=== PATIENT | male | born 1935 | race Caucasian/White ===

== ENCOUNTER 2017-03-01 08:13 | Observation (INO) | payer OTHER ==
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
[2017-03-01 09:19] LABS: BASOPHIL 0.5 % (0-2.0); EOSINOPHIL 0.9 % (0-4.5); MCH 32.2 pg (25.7-33.7); MCHC 35.5 g/dl (32.0-35.9); MEAN CELL VOLUME 90.8 fl (80-96); MEAN PLT VOLUME 8.2 fl (7.5-11.1); NEUTROPHILS 66.4 % (42.8-82.8); PLATELET COUNT 139 K/MM3 (134-434); RDW 13.9 % (11.9-15.9); WHITE BLOOD COUNT 6.7 K/mm3 (4.0-10.0)
[2017-03-01 09:49] LABS: ALBUMIN 3.8 g/dl (3.4-5.0); ALK PHOS 77 U/L (45-117); ANION GAP 7 (8-16); BILIRUBIN,TOTAL 1.2 mg/dL (0.2-1.0); CALCIUM 9.5 mg/dL (8.5-10.1); CO2 26 mmol/L (21-32); CREATININE 1.5 mg/dL (0.7-1.3); GLUCOSE,RANDOM 200 mg/dL (74-106); SGOT/AST 24 U/L (15-37); SGPT/ALT 29 U/L (12-78); TOT PROT 7.2 g/dl (6.4-8.2)
--- NOTE | 2017-03-01 13:51 | HP ---
CHIEF COMPLAINT: left sided hand/foot numbness and tingling x 2 days PCP: Dr. Bright Neurologist: Dr. Baltazar HISTORY OF PRESENT ILLNESS: Patient is a 81 year old male with a significant past medical history of CVA with left sided facial residual tingling/numbless, in the left 3rd, 4th and 5th digits, hypertensin, hyperlipidemia and diabetes mellitus. He presented to the ER today with left sided hand/foot numbness and tingling for the past 2 days. The patient reports having numbness/tingling in his entire left hand as opposed to just the left 3rd, 4th and 5th digits. He also notes having decreased sensation in his left toes. He denies any complaints of pain, denies any recent trauma. He further denies fevers, chills, headache or dizziness. He denies any recent nausea, vomit, diarrhea or constipation. He denies any recent chest pain or shortness of breath. He denies any recent dysuria, frequency, urgency or hematuria. Patient states he follows Dr. Baltazar as an outpatient. ER course was notable for: (1) NA 135 (2) BUN 28, creat 1.5 (3) Gluc 200, Bili 1.2 (4) Head CT with no acute bleed or fracture Recent Travel: none PAST MEDICAL HISTORY: CVA with left sided facial residual tingling/numbless, in the left 3rd, 4th and 5th digits, hypertension, hyperlipidemia and diabetes mellitus PAST SURGICAL HISTORY: Social History: Smoking: none Alcohol: denies Drugs: denies Family History: Allergies No Known Allergies Allergy (Verified 03/01/17 08:23) HOME MEDICATIONS: Home Medications Medication Instructions Recorded Amlodipine Besylate 10 mg PO DAILY 05/07/16 Brimonidine Tartrate/Timolol 5 ml OP DAILY 05/07/16 [Combigan 0.2%-0.5% Eye Drops] Cholecalciferol (Vitamin D3) 2,000 unit PO DAILY 05/07/16 [Vitamin D3] Dutasteride/Tamsulosin HCl 1 each PO DAILY 05/07/16 [Dutasteride-Tamsulosin 0.5-0.4] Enalapril Maleate [Vasotec -] 10 mg PO DAILY 05/07/16 Metformin HCl 500 mg PO DAILY 05/07/16 Metoprolol Succinate [Toprol XL -] 25 mg PO DAILY 05/07/16 Multivit-Min/FA/Lycopen/Lutein 1 each PO DAILY 05/07/16 [Centrum Silver Tablet] Simvastatin [Zocor -] 40 mg PO HS 05/07/16 Zolpidem Tartrate 10 mg PO DAILY 05/07/16 Aspirin/Dipyridamole [Aggrenox -] 1 combo PO BID #0 05/09/16 [place]-3 Acid Ethyl Esters [Lovaza 1 mg PO DAILY 05/09/16 -] Ranitidine [Zantac -] 150 mg PO BID #0 05/09/16 REVIEW OF SYSTEMS CONSTITUTIONAL: Absent: fever, chills, diaphoresis, generalized weakness, malaise, loss of appetite, weight change HEENT: Absent: rhinorrhea, nasal congestion, throat pain, throat swelling, difficulty swallowing, mouth swelling, ear pain, eye pain, visual changes CARDIOVASCULAR: Absent: chest pain, syncope, palpitations, irregular heart rate, lightheadedness , peripheral edema RESPIRATORY: Absent: cough, shortness of breath, dyspnea with exertion, orthopnea, wheezing, stridor, hemoptysis GASTROINTESTINAL: Absent: abdominal pain, abdominal distension, nausea, vomiting, diarrhea, constipation, melena, hematochezia GENITOURINARY: Absent: dysuria, frequency, urgency, hesitancy, hematuria, flank pain, genital pain MUSCULOSKELETAL: Absent: myalgia, arthralgia, joint swelling, back pain, neck pain SKIN: Absent: rash, itching, pallor HEMATOLOGIC/IMMUNOLOGIC: Absent: easy bleeding, easy bruising, lymphadenopathy, frequent infections ENDOCRINE: Absent: unexplained weight gain, unexplained weight loss, heat intolerance, cold intolerance NEUROLOGIC: Absent: headache, focal weakness or paresthesias, dizziness, unsteady gait, seizure, mental status changes, bladder or bowel incontinence PSYCHIATRIC: Absent: anxiety, depression, suicidal or homicidal ideation, hallucinations. PHYSICAL EXAMINATION GENERAL: Awake, alert, and fully oriented, in no acute distress. HEAD: No change in vision. No ear pain or discharge. No sore throat. EYES: Pupils equal, round and reactive to light, extraocular movements intact, sclera anicteric, conjunctiva clear. No lid lag. EARS, NOSE, THROAT: Ears normal, nares patent, oropharynx clear without exudates. Moist mucous membranes. NECK: Normal range of motion, supple without lymphadenopathy, JVD, or masses. LUNGS: Breath sounds equal, clear to auscultation bilaterally. No wheezes, and no crackles. No accessory muscle use. HEART: Regular rate and rhythm, normal S1 and S2 without murmur, rub or gallop. ABDOMEN: Soft, nontender, not distended, normoactive bowel sounds, no guarding, no rebound, no masses. No hepatomegaly or splenomegaly. MUSCULOSKELETAL: Normal range of motion at all joints. No bony deformities or tenderness. No CVA tenderness. UPPER EXTREMITIES: 2+ pulses, warm, well-perfused. No cyanosis. No clubbing. No peripheral edema. LOWER EXTREMITIES: 2+ pulses, warm, well-perfused. No calf tenderness. No peripheral edema. NEUROLOGICAL: L hand fingers and left toes numbness and tingling. No headache, vertigo, loss of consciousness. PSYCHIATRIC: Cooperative. Good eye contact. Appropriate mood and affect. SKIN: Warm, dry, normal turgor, no rashes or lesions noted, normal capillary refill. ASSESSMENT/PLAN: Patient is a 81 year old male with a significant past medical history of CVA with left sided facial residual tingling/numbless, in the left 3rd, 4th and 5th digits, hypertension, hyperlipidemia and diabetes mellitus. He presented to the ER today with left sided hand/foot numbness and tingling for the past 2 days. The patient reports having numbness/tingling in his entire left hand as opposed to just the left 3rd, 4th and 5th digits. He also notes having decreased sensation in his left toes. He denies any complaints of pain, denies any recent trauma. He further denies fevers, chills, headache or dizziness. He denies any recent nausea, vomit, diarrhea or constipation. He denies any recent chest pain or shortness of breath. He denies any recent dysuria, frequency, urgency or hematuria. Neuro: Rule out TIA/CVA - history of prior CVA with left sided residual A/P: Head CT negative, Brain MRI: no acute infarct is seen, chronic right frontoparietal and right posterior temporal cortical infarcts, punctate chronic right basal ganglia infarcts are seen, moderae periventricular and subcortical chronic microvascular ischemic changes are noted On Aggrenox BID Neuro checks Physical therapy Neuro consulted Cardiology: Hypertension -chronic/controlled A/P: On Amlodopine 10mg, Metoprolol 25mg, Vasotec 10mg Cardiology consulted to rule out cardiac cause of recent neuro event hyperlipidemia - chronic A/P: continue home medications Endocrine: Diabetes Mellitus A/P: Monitor BGMs, sliding scale, diabetic diet Renal: ALEM A/P: NS @ 50cc/hr Repeat labs in a.m. F.E.N. Fluids: NS @ 50cc/hr x 1 Electrolytes: monitor Nutrition: diabetic diet Prophylaxis: DVT: on Aggrenox GI: Zantac Disposition: OBS, full code.
[2017-03-01] MEDS ORDERED: SODIUM CHLORIDE 1,000 ML IV SCH (14:00)
[2017-03-01 15:16] VITALS: BMI 28.3
[2017-03-01 20:08] LABS: URINE APPEARANCE CLEAR; URINE BILIRUBIN NEGATIVE (NEGATIVE); URINE BLOOD NEGATIVE (NEGATIVE); URINE COLOR YELLOW; URINE GLUCOSE (UA) 2+ (NEGATIVE); URINE KETONE NEGATIVE (NEGATIVE); URINE LEUK ESTERASE NEGATIVE (NEGATIVE); URINE NITRITE NEGATIVE (NEGATIVE); URINE UROBILINOGEN NEGATIVE mg/dL (0.2-1.0)
[2017-03-01 20:13] LABS: URINE PROTEIN 1+ (NEGATIVE)
[2017-03-01 20:14] LABS: URINE MUCUS FEW; URINE RBC <1 /hpf (0-3); URINE WBC <1 /hpf (3-5)
[2017-03-01] MEDS: INSULIN SLIDING SCALE (NOVOLOG) 1 VIAL SQ SCH (21:42)
[2017-03-01] MEDS: RANITIDINE HCL 150 MG TABLET (FP) PO SCH ×2 (21:53→21:56)
[2017-03-01] MEDS: ASPIRIN/DIPYRIDAMOLE 25 MG/200 MG CAPSULE (FP) PO SCH (21:53)
[2017-03-01] MEDS ORDERED: ATORVASTATIN CA 20 MG TABLET (FP) PO SCH (22:00)
[2017-03-01] MEDS: OMEGA-3 ACID ETHYL ESTERS (FATTY-ACIDS) 1 GM CAPSULE (FP) PO SCH (23:00)
[2017-03-02] MEDS: INSULIN SLIDING SCALE (NOVOLOG) 1 VIAL SQ SCH ×2 (06:29→11:44)
[2017-03-02 07:06] LABS: BASOPHIL 0.6 % (0-2.0); EOSINOPHIL 1.4 % (0-4.5); MCH 32.4 pg (25.7-33.7); MCHC 35.9 g/dl (32.0-35.9); MEAN CELL VOLUME 90.2 fl (80-96); MEAN PLT VOLUME 8.1 fl (7.5-11.1); NEUTROPHILS 52.7 % (42.8-82.8); PLATELET COUNT 108 K/MM3 (134-434); RDW 13.5 % (11.9-15.9); WHITE BLOOD COUNT 4.9 K/mm3 (4.0-10.0)
[2017-03-02 07:39] LABS: ANION GAP 9 (8-16); CALCIUM 9.2 mg/dL (8.5-10.1); CO2 25 mmol/L (21-32); CREATININE 1.2 mg/dL (0.7-1.3); GLUCOSE,RANDOM 133 mg/dL (74-106); MAGNESIUM 1.9 mg/dL (1.8-2.4); THYROID STIMULATING HORMONE 1.56 uIU/ml (0.358-3.74)
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
[2017-03-02] MEDS ORDERED: METOPROLOL SUCCINATE 25 MG TAB.SR.24H (FP) PO SCH (10:00)
[2017-03-02] MEDS ORDERED: DUTASTERIDE 0.5 MG CAP (FP) PO SCH (10:00)
[2017-03-02] MEDS ORDERED: ENALAPRIL MALEATE 10 MG TABLET (FP) PO SCH (10:00)
[2017-03-02] MEDS ORDERED: PATIENT'S OWN MEDICATION (NON-FORMULARY) (Brimonidine Tartrate/Timolol [Combigan 0.2%-0.5% OP SCH (10:00)
[2017-03-02] MEDS ORDERED: OMEGA-3 ACID ETHYL ESTERS (FATTY-ACIDS) 1 GM CAPSULE (FP) PO SCH (10:00)
[2017-03-02] MEDS ORDERED: BRIMONIDINE TARTRATE 0.2% OPHTHALMIC 5 ML BOTTLE OS SCH (10:00)
[2017-03-02] MEDS ORDERED: TAMSULOSIN HCL 0.4 MG CAP.ER.24H (FP) PO SCH (10:00)
[2017-03-02] MEDS ORDERED: CHOLECALCIFEROL (VITAMIN D3) 1,000 UNIT TABLET (FP) PO SCH (10:00)
[2017-03-02] MEDS ORDERED: MULTIVITAMINS THER W-MINERALS COMBO TABLET (FP) PO SCH (10:00)
[2017-03-02] MEDS ORDERED: PATIENT'S OWN MEDICATION (NON-FORMULARY) (Dutasteride/Tamsulosin Hcl [Dutasteride-Tamsulos PO SCH (10:00)
[2017-03-02] MEDS ORDERED: amLODIPine BESYLATE 10 MG TABLET (FP) PO SCH (10:00)
[2017-03-02] MEDS ORDERED: TIMOLOL 0.5% OPHTHALMIC SOL 5 ML BOTTLE OS SCH (10:00)
[2017-03-02] MEDS ORDERED: PT OWN MED DRAWER 7, Y5N ONE (10:15)
--- NOTE | 2017-03-02 10:37 | CON.CARD ---
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 He denies chest pain, shortness of breath or palpitations. He denies paroxysmal nocturnal dyspnea or orthopnea. He denies fever or chills. He denies headache or lightheadedness. Head CT and MRI of brain was unremarkable. He remains of Aggrenox and currently is compliant with his medications. 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 Cardio/Vascular: Yes: HTN, Hyperlipdemia Endocrine: Yes: Diabetes Mellitus - Past Surgical History Past Surgical History: Yes: None - Alcohol/Substance Use Hx Alcohol Use: No - Smoking History Smoking history: Former smoker Have you smoked in the past 12 months: No Aproximately how many cigarettes per day: 0 If you are a former smoker, when did you quit?: 40 YRS AGO Home Medications - Allergies Allergies/Adverse Reactions: Allergies Allergy/AdvReac Type Severity Reaction Status Date / Time No Known Allergies Allergy Verified 03/01/17 08:23 - Home Medications Home Medications: Ambulatory Orders Amlodipine Besylate 10 mg PO DAILY 05/07/16 Brimonidine Tartrate/Timolol [Combigan 0.2%-0.5% Eye Drops] 5 ml OP DAILY Cholecalciferol (Vitamin D3) [Vitamin D3] 2,000 unit PO DAILY 05/07/16 Dutasteride/Tamsulosin HCl [Dutasteride-Tamsulosin 0.5-0.4] 1 each PO DAILY Enalapril Maleate [Vasotec -] 10 mg PO DAILY 05/07/16 Metformin HCl 500 mg PO DAILY 05/07/16 Metoprolol Succinate [Toprol XL -] 25 mg PO DAILY 05/07/16 Multivit-Min/FA/Lycopen/Lutein [Centrum Silver Tablet] 1 each PO DAILY 05/07/16 Simvastatin [Zocor -] 40 mg PO HS 05/07/16 Zolpidem Tartrate 10 mg PO DAILY 05/07/16 Aspirin/Dipyridamole [Aggrenox -] 1 combo PO BID #0 05/09/16 [place]-3 Acid Ethyl Esters [Lovaza -] 1 mg PO BID 05/09/16 Omeprazole 0 mg PO DAILY 03/01/17 Review of Systems - Review of Systems Constitutional: denies: Chills, Fever Cardiovascular: denies: Chest Pain, Palpitations, Shortness of Breath Respiratory: denies: Cough, Hemoptysis, Orthopnea, PND, SOB, SOB on Exertion Gastrointestinal: denies: Abdominal Pain, Constipation, Diarrhea, Melena, Nausea , Rectal Bleeding, Vomiting Neurological: denies: Confusion, Dizziness, Seizure, Syncope Vital Signs: Vital Signs Temperature 97.9 F 03/02/17 06:00 Pulse Rate 66 03/02/17 06:00 Respiratory Rate 20 03/02/17 07:00 Blood Pressure 109/61 03/02/17 06:00 O2 Sat by Pulse Oximetry (%) 97 03/02/17 07:00 Neck: Yes: Supple Respiratory: Yes: CTA Bilaterally Gastrointestinal: Yes: Normal Bowel Sounds, Soft. No: Tenderness Cardiovascular: Yes: Regular Rate and Rhythm JVD: No Carotid Bruit: No PMI: Non-Displaced Heart Sounds: Yes: S1, S2. No: Gallop Edema: No Neurological: Yes: Numbness, Tingling - Other Data Labs, Other Data: CBC, BMP 03/02/17 05:35 03/02/17 05:35 Laboratory Results - last 24 hr 03/02/17 03/02/17 03/02/17 05:35 05:35 05:35 WBC 4.9 RBC 3.95 L Hgb 12.8 Hct 35.6 MCV 90.2 MCH 32.4 MCHC 35.9 RDW 13.5 Plt Count 108 L D MPV 8.1 Neutrophils % 52.7 D Lymphocytes % 34.3 D Monocytes % 11.0 H Eosinophils % 1.4 Basophils % 0.6 Sodium 138 Potassium 3.9 Chloride 104 Carbon Dioxide 25 Anion Gap 9 BUN 21 H D Creatinine 1.2 POC Glucometer Random Glucose 133 H D Hemoglobin A1c % 7.5 H Calcium 9.2 Magnesium 1.9 TSH 1.56 Normal sinus rhythm with no ST-T abnormality Problem List - Problems (1) Paresthesias in left hand Code(s): R20.2 - PARESTHESIA OF SKIN (2) Cerebrovascular accident Code(s): I63.9 - CEREBRAL INFARCTION, UNSPECIFIED (3) HTN (hypertension) Code(s): I10 - ESSENTIAL (PRIMARY) HYPERTENSION Qualifiers: Hypertension type: essential hypertension Qualified Code(s): I10 - Essential (primary) hypertension (4) Hypercholesterolemia Code(s): E78.00 - PURE HYPERCHOLESTEROLEMIA, UNSPECIFIED (5) Diabetes mellitus Code(s): E11.9 - TYPE 2 DIABETES MELLITUS WITHOUT COMPLICATIONS Qualifiers: Diabetes mellitus type: type 2 Diabetes mellitus complication status: without complication 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 History of CVA with numbness of left hand and foot 2. Hypertension/HCVD 3. Hypercholesterolemia 4. Type 2 diabetes mellitus PLAN: 1. Neuro input noted 2. Continue Metoprolol, Amlodipine and Enalapril as tolerated 3. Continue Aggrenox 4. Continue Atorvastatin and [place] 3 fish oil Discharge planning if no further neuro evaluation is planned Follow up in office Larry Cui MD
[2017-03-02 11:02] VITALS: BP 138/85; PULSE 85; TEMP 98
[2017-03-02] MEDS: OMEGA-3 ACID ETHYL ESTERS (FATTY-ACIDS) 1 GM CAPSULE (FP) PO SCH (11:06)
[2017-03-02] MEDS: ASPIRIN/DIPYRIDAMOLE 25 MG/200 MG CAPSULE (FP) PO SCH (11:07)
[2017-03-02] MEDS: RANITIDINE HCL 150 MG TABLET (FP) PO SCH (11:07)
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
--- NOTE | 2017-03-02 13:31 | DS ---
Physical Exam: SUBJECTIVE: Patient seen and examined at the bedside. OBJECTIVE: Cleared by neurology and cardiology for discharge Patient will need outpatient follow up Vital Signs Period Temp Pulse Resp BP Sys/Urban Pulse Ox Last 24 Hr 97.8 F-98.2 F 66-85 14-20 96-138/58-85 97-99 PHYSICAL EXAM GENERAL: Awake, alert, and fully oriented, in no acute distress. HEAD: No change in vision. No ear pain or discharge. No sore throat. EYES: Pupils equal, round and reactive to light, extraocular movements intact, sclera anicteric, conjunctiva clear. No lid lag. EARS, NOSE, THROAT: Ears normal, nares patent, oropharynx clear without exudates. Moist mucous membranes. NECK: Normal range of motion, supple without lymphadenopathy, JVD, or masses. LUNGS: Breath sounds equal, clear to auscultation bilaterally. No wheezes, and no crackles. No accessory muscle use. HEART: Regular rate and rhythm, normal S1 and S2 without murmur, rub or gallop. ABDOMEN: Soft, nontender, not distended, normoactive bowel sounds, no guarding, no rebound, no masses. No hepatomegaly or splenomegaly. MUSCULOSKELETAL: Normal range of motion at all joints. No bony deformities or tenderness. No CVA tenderness. UPPER EXTREMITIES: 2+ pulses, warm, well-perfused. No cyanosis. No clubbing. No peripheral edema. LOWER EXTREMITIES: 2+ pulses, warm, well-perfused. No calf tenderness. No peripheral edema. NEUROLOGICAL: L hand fingers and left toes numbness and tingling. No headache, vertigo, loss of consciousness. PSYCHIATRIC: Cooperative. Good eye contact. Appropriate mood and affect. SKIN: Warm, dry, normal turgor, no rashes or lesions noted, normal capillary refill. LABS Laboratory Results - last 24 hr 03/01/17 03/01/17 03/01/17 17:47 18:50 21:40 WBC RBC Hgb Hct MCV MCH MCHC RDW Plt Count MPV Neutrophils % Lymphocytes % Monocytes % Eosinophils % Basophils % Sodium Potassium Chloride Carbon Dioxide Anion Gap BUN Creatinine POC Glucometer 234 124 Random Glucose Hemoglobin A1c % Calcium Magnesium TSH Urine Color Yellow Urine Appearance Clear Urine pH 5.0 Ur Specific [place] 1.020 Urine Protein 1+ H Urine Glucose (UA) 2+ H Urine Ketones Negative Urine Blood Negative Urine Nitrite Negative Urine Bilirubin Negative Urine Urobilinogen Negative Ur Leukocyte Esterase Negative Urine RBC <1 Urine WBC <1 Urine Mucus Few 03/02/17 03/02/17 03/02/17 05:35 05:35 05:35 WBC 4.9 RBC 3.95 L Hgb 12.8 Hct 35.6 MCV 90.2 MCH 32.4 MCHC 35.9 RDW 13.5 Plt Count 108 L D MPV 8.1 Neutrophils % 52.7 D Lymphocytes % 34.3 D Monocytes % 11.0 H Eosinophils % 1.4 Basophils % 0.6 Sodium 138 Potassium 3.9 Chloride 104 Carbon Dioxide 25 Anion Gap 9 BUN 21 H D Creatinine 1.2 POC Glucometer Random Glucose 133 H D Hemoglobin A1c % 7.5 H Calcium 9.2 Magnesium 1.9 TSH 1.56 Urine Color Urine Appearance Urine pH Ur Specific [place] Urine Protein Urine Glucose (UA) Urine Ketones Urine Blood Urine Nitrite Urine Bilirubin Urine Urobilinogen Ur Leukocyte Esterase Urine RBC Urine WBC Urine Mucus 03/02/17 03/02/17 06:11 11:43 WBC RBC Hgb Hct MCV MCH MCHC RDW Plt Count MPV Neutrophils % Lymphocytes % Monocytes % Eosinophils % Basophils % Sodium Potassium Chloride Carbon Dioxide Anion Gap BUN Creatinine POC Glucometer 132 137 Random Glucose Hemoglobin A1c % Calcium Magnesium TSH Urine Color Urine Appearance Urine pH Ur Specific [place] Urine Protein Urine Glucose (UA) Urine Ketones Urine Blood Urine Nitrite Urine Bilirubin Urine Urobilinogen Ur Leukocyte Esterase Urine RBC Urine WBC Urine Mucus HOSPITAL COURSE: Date of Admission:03/01/17 Date of Discharge: 03/02/17 Patient is a 81 year old male with a significant past medical history of CVA with left sided facial residual tingling/numbness, in the left 3rd, 4th and 5th digits, hypertension, hyperlipidemia and diabetes mellitus. He presented to the ER with c/o left sided hand/foot numbness and tingling for the past 2 days. The patient reports having numbness/tingling in his entire left hand as opposed to just the left 3rd, 4th and 5th digits. He also notes having decreased sensation in his left toes. He denies any complaints of pain, denies any recent trauma. He further denies fevers, chills, headache or dizziness. He denies any recent nausea, vomit, diarrhea or constipation. He denies any recent chest pain or shortness of breath. He denies any recent dysuria, frequency, urgency or hematuria. Neuro: Rule out TIA/CVA - history of prior CVA with left sided residual A/P: Head CT negative, Brain MRI: no acute infarct is seen, chronic right frontoparietal and right posterior temporal cortical infarcts, punctate chronic right basal ganglia infarcts are seen, moderae periventricular and subcortical chronic microvascular ischemic changes are noted On Aggrenox BID, to continue as an outpatient Continue Amlodipine and Enalapril for HTN Follow up with Neurologist within 1 week after discharge Cardiology: Hypertension -chronic/controlled A/P: On Amlodopine 10mg, Metoprolol 25mg, Vasotec 10mg Cardiology cleared for discharge hyperlipidemia - chronic A/P: continue home medications Endocrine: Diabetes Mellitus A/P: Monitor BGMs, sliding scale, diabetic diet hmg a1c 7.5%, outpatient follow up with PCP Continue metformin Renal: ALEM - resolved A/P: Continue to hydrate Repeat BMP as an outpatient Disposition: Cleared by Neurology and Cardiology for discharge. Full code. Minutes to complete discharge: 60 Discharge Summary Reason For Visit: CERERBROVASCULAR ACCIDENT Current Active Problems Left leg paresthesias (Acute) Paresthesias in left hand (Acute) Condition: Stable - Instructions Diet, Activity, Other Instructions: Mr. Daly: Please follow up with Dr. Baltazar (Neurologist) and Dr. Basilia Juarez (Cardiology) for follow up and workup. Please return to the ER if you experience any new or worsening symptoms. Continue all your medications as prescribed. [facility] @ [facility], [place] [phone] Referrals: Clement Bright MD [Primary Care Provider] - Larry Cui MD [Staff Physician] - 1 Week Jeronimo Baltazar MD [Staff Physician] - 1 Week Disposition: HOME - Home Medications Comprehensive Discharge Medication List: Ambulatory Orders Amlodipine Besylate 10 mg PO DAILY 05/07/16 Brimonidine Tartrate/Timolol [Combigan 0.2%-0.5% Eye Drops] 5 ml OP DAILY Cholecalciferol (Vitamin D3) [Vitamin D3] 2,000 unit PO DAILY 05/07/16 Dutasteride/Tamsulosin HCl [Dutasteride-Tamsulosin 0.5-0.4] 1 each PO DAILY Enalapril Maleate [Vasotec -] 10 mg PO DAILY 05/07/16 Metformin HCl 500 mg PO DAILY 05/07/16 Metoprolol Succinate [Toprol XL -] 25 mg PO DAILY 05/07/16 Multivit-Min/FA/Lycopen/Lutein [Centrum Silver Tablet] 1 each PO DAILY 05/07/16 Simvastatin [Zocor -] 40 mg PO HS 05/07/16 Zolpidem Tartrate 10 mg PO DAILY 05/07/16 Aspirin/Dipyridamole [Aggrenox -] 1 combo PO BID #0 05/09/16 [place]-3 Acid Ethyl Esters [Lovaza -] 1 mg PO BID 05/09/16 Omeprazole 0 mg PO DAILY 03/01/17 This patient is new to me today: No Emergency Visit: Yes ED Registration Date: 03/01/17 Care time: The patient presented to the Emergency Department on the above date and was hospitalized for further evaluation of their emergent condition. Critical Care patient: No - Discharge Referral Referred to [facility] No
--- NOTE | 2017-03-02 21:53 | EKG ---
Test Reason : Blood Pressure : / mmHG Vent. Rate : 069 BPM Atrial Rate : 069 BPM P-R Int : 166 ms QRS Dur : 088 ms QT Int : 400 ms P-R-T Axes : 029 007 022 degrees QTc Int : 428 ms NORMAL SINUS RHYTHM NORMAL ECG WHEN COMPARED WITH ECG OF 25-DEC-2013 15:22, NO SIGNIFICANT CHANGE WAS FOUND Confirmed by SHARRI ARIZMENDI MD ([id number]) on 03/02/2017 9:52:34 PM Referred By: Confirmed By:SHARRI ARIZMENDI MD
== END 2017-03-02 15:05 | disposition home or self-care (01) ==
LOC: JER 08:13 → JERBED 11:17 → J4W 15:04
PROVIDERS: ADMIT Internal Medicine; ATTEND Nurse Practitioner Family
PROC: 3E0337Z Introduction of Electrolytic and Water Balance Substance into Peripheral Vein, Percutaneous Approach (ICD-10-PCS; principal; 2017-03-01)
DX: I63.9 Cerebral infarction, unspecified (principal); R20.2 Paresthesia of skin; I10 Essential (primary) hypertension; E78.5 Hyperlipidemia, unspecified; E11.9 Type 2 diabetes mellitus without complications; Z79.84 Long term (current) use of oral hypoglycemic drugs; Z79.82 Long term (current) use of aspirin; Z87.442 Personal history of urinary calculi; Z87.891 Personal history of nicotine dependence; I69.398 Other sequelae of cerebral infarction; N17.9 Acute kidney failure, unspecified
CPT/HCPCS: 36415; 70450-TC; 70551-TC; 80048; 80053; 81003; 81015; 83036; 83735; 84443; 85025; 87086; 93005; 93010; 97116-GP; 97161-GP; 99285-25; G0378

== ENCOUNTER 2019-07-26 14:22 | Inpatient (IN) | payer OTHER ==
--- NOTE | 2019-07-26 15:25 | PDOC ---
History of Present Illness - General Chief Complaint: Injury Stated Complaint: FALL Time Seen by Provider: 07/26/19 15:19 - History of Present Illness Initial Comments: 07/26/19 16:45 84y/o M hx of CVA x 2 with residual left sided weakness, HTN, HLD, DM, presents to the ER after falling on 2 days ago. This is his 4th fall in the last month and a half, per at the bedside. He reports slipping and falling on the bathroom floor, and hitting is head. there was no loss of consciousness after falling, EMS was called to the scene but patient refused to go to the hospital for further evaluation. He presented today to the ED at his PCP's request (Dr. Plummer). reports that after his first fall, he has had increased inability to wal unassisted and has had an increased shuffling in his gait. Pt denies any headaches, nausea, vomiting, after event or at this time. The patient has had increased forgetfulness per his since he started falling. 07/26/19 16:57 07/26/19 19:08 Past History - Past Medical History Allergies/Adverse Reactions: Allergies Allergy/AdvReac Type Severity Reaction Status Date / Time No Known Allergies Allergy Verified 03/01/17 08:23 Home Medications: Ambulatory Orders Amlodipine Besylate 10 mg PO DAILY 05/07/16 Brimonidine Tartrate/Timolol [Combigan 0.2%-0.5% Eye Drops] 1 drop OU BID Cholecalciferol (Vitamin D3) [Vitamin D3] 2,000 unit PO DAILY 05/07/16 Enalapril Maleate [Vasotec -] 10 mg PO DAILY 05/07/16 Metoprolol Succinate [Toprol XL -] 25 mg PO DAILY 05/07/16 Multivit-Min/FA/Lycopen/Lutein [Centrum Silver Tablet] 1 each PO DAILY 05/07/16 Simvastatin [Zocor -] 40 mg PO HS 05/07/16 Aspirin/Dipyridamole [Aggrenox -] 1 combo PO BID #0 05/09/16 [place]-3 Acid Ethyl Esters [Lovaza -] 1 mg PO BID 05/09/16 Bimatoprost [Lumigan] 1 drop OU HS 07/26/19 Brimonidine Tartrate [Alphagan 0.2% -] 1 drop OU BID drops 07/29/19 Potassium Chloride [K-Dur -] 10 meq PO DAILY tablet.er 07/29/19 Anemia: No Asthma: No Cancer: No Cardiac Disorders: Yes (ATRIAL SEPTAL DEFECT) CVA: Yes (2006, 2013 ? TIA) COPD: No CHF: No Dementia: No Diabetes: Yes (type 2) GI Disorders: Yes (GASTRITIS, ESOPHAGITIS, DIVERTICULOSIS) Disorders: Yes (KIDNEY STONES) HTN: Yes Hypercholesterolemia: Yes Liver Disease: No Seizures: No Thyroid Disease: No - Surgical History Abdominal Surgery: No Appendectomy: Yes Cardiac Surgery: No Cholecystectomy: No Lung Surgery: No Neurologic Surgery: No Orthopedic Surgery: No - Psycho Social/Smoking Cessation Hx Smoking Status: No Smoking History: Former smoker Have you smoked in the past 12 months: No Number of Cigarettes Smoked Daily: 0 If you are a former smoker, when did you quit?: 40 YRS AGO Information on smoking cessation initiated: No Hx Alcohol Use: No Drug/Substance Use Hx: No Substance Use Type: None Hx Substance Use Treatment: No *Physical Exam - Vital Signs Last Vital Signs Temp Pulse Resp BP Pulse Ox 97.7 F 70 16 133/98 98 07/26/19 14:51 07/26/19 15:11 07/26/19 15:11 07/26/19 15:11 07/26/19 15:11 - Physical Exam 07/26/19 18:21 GENERAL: Awake, alert, and fully oriented, in no acute distress HEAD: No signs of trauma, normocephalic, atraumatic EYES: PERRLA, EOMI, sclera anicteric, conjunctiva clear. left periorbital ecchymosis (variegated) ENT: Auricles normal inspection, hearing grossly normal, no hemotympanum nares patent, oropharynx clear without exudates. Moist mucosa NECK: Normal ROM, supple, no lymphadenopathy, JVD, or masses LUNGS: No distress, speaks full sentences, clear to auscultation bilaterally HEART: Regular rate and rhythm, normal S1 and S2, no murmurs, rubs or gallops, peripheral pulses normal and equal bilaterally. ABDOMEN: Soft, nontender, normoactive bowel sounds. No guarding, no rebound. No masses EXTREMITIES :No edema. No clubbing or cyanosis of lower extremities NEUROLOGICAL: Cranial nerves II through XII grossly intact. 3/5 strength left upper extremity. head tilted slightly towards the left. Pt able to ambulate with assistance, with shuffling gait. SKIN: Warm, Dry, normal turgor, no rashes or lesions noted 07/26/19 19:10 ED Treatment Course - LABORATORY CBC & Chemistry Diagram: 07/28/19 06:48 07/29/19 07:05 Medical Decision Making - Medical Decision Making 07/26/19 18:19 84y/o M hx of CVA x 2 with residual left sided weakness, HTN, HLD, DM, presents to the ER after falling on 2 days ago. ekg normal sinus rhythm moderate voltage criteria for LVH annot rule out septal infarct Head CT No evidence of acute intracranial pathology Facial CT no evidence of facial bone fracture or acute pathology cervical spine w/o contrast moderately severe degenerative arthirits with no acute fracture or acute pathology 07/26/19 18:39 Dr. Yoo covering for Dr. Plummer, spoke with him on the phone, pt to be admitted to hospital for altered mental status. Labs' hypokalemia 3.2 Creatinine 1.4 07/26/19 18:49 microblog sent to admitting team 07/26/19 18:57 07/26/19 19:08 07/26/19 19:09 Discharge - Discharge Information Problems reviewed: Yes Clinical Impression/Diagnosis: Altered mental status Qualifiers: Altered mental status type: unspecified Qualified Code(s): R41.82 - Altered mental status, unspecified Condition: Stable [facility]position: [facility] - Follow up/Referral - Patient Discharge Instructions - Post Discharge Activity
[2019-07-26 17:23] LABS: EPI CELLS 1.4 /HPF (0-5/HPF); HYALINE CASTS 3 /lpf (0-8); PH,URINE 5.5 (5.0-8.0); URINE APPEARANCE CLEAR; URINE BACTERIA 17.9 /hpf (NEGATIVE); URINE BILIRUBIN NEGATIVE (NEGATIVE); URINE COLOR YELLOW; URINE GLUCOSE (UA) 1+ (NEGATIVE); URINE KETONE NEGATIVE (NEGATIVE); URINE LEUK ESTERASE NEGATIVE (NEGATIVE); URINE NITRITE NEGATIVE (NEGATIVE); URINE PROTEIN 2+ (NEGATIVE); URINE RBC 2 /hpf (0-4); URINE UROBILINOGEN 0.2 mg/dL (0.2-1.0); URINE WBC 1 /hpf (0-5)
[2019-07-26 17:24] LABS: BASO % 0.7 % (0-2.0); EOS % 0.7 % (0-4.5); HEMATOCRIT 41.9 % (35.4-49); HEMOGLOBIN 14.5 GM/dL (11.7-16.9); LYMPH % 17.2 % (8-40); MCH 30.4 pg (25.7-33.7); MCHC 34.6 g/dl (32.0-35.9); MEAN CELL VOLUME 87.9 fl (80-96); MEAN PLT VOLUME 8.5 fl (7.5-11.1); MONO % 9.9 % (3.8-10.2); NEUT % 71.5 % (42.8-82.8); PLATELET COUNT 154 K/MM3 (134-434); RBC 4.77 M/mm3 (4.00-5.60); RDW 14.9 % (11.9-15.9)
[2019-07-26 17:36] LABS: INR 0.94 (0.83-1.09); PROTHROMBIN TIME (PATIENT) 11.1 SEC (9.7-13.0)
[2019-07-26 17:38] LABS: ACTIVATED PTT 33.7 SECONDS (25.2-36.5)
[2019-07-26 18:22] LABS: ALBUMIN 3.9 g/dl (3.4-5.0); BILIRUBIN,TOTAL 1.2 mg/dL (0.2-1); BLOOD UREA NITROGEN 19.6 mg/dL (7-18); CALCIUM 9.6 mg/dL (8.5-10.1); CREATININE 1.4 mg/dL (0.55-1.3); POTASSIUM 3.2 mmol/L (3.5-5.1); TOT PROT 7.4 g/dl (6.4-8.2)
--- NOTE | 2019-07-26 19:27 | PDOC ---
*Physical Exam - Vital Signs Last Vital Signs Temp Pulse Resp BP Pulse Ox 97.7 F 70 16 133/98 98 07/26/19 14:51 07/26/19 15:11 07/26/19 15:11 07/26/19 15:11 07/26/19 16:01 ED Treatment Course - LABORATORY CBC & Chemistry Diagram: 07/26/19 16:41 07/26/19 16:41 - ADDITIONAL ORDERS Additional order review: Laboratory Results 07/26/19 07/26/19 07/26/19 16:41 16:41 16:41 PT with INR 11.10 INR 0.94 PTT (Actin FS) 33.7 Sodium 139 Potassium 3.2 L Chloride 103 Carbon Dioxide 27 Anion Gap 9 BUN 19.6 H Creatinine 1.4 H Est GFR (CKD-EPI)AfAm 53.09 Est GFR (CKD-EPI)NonAf 45.81 Random Glucose 128 H Calcium 9.6 Total Bilirubin 1.2 H AST 24 ALT 23 Alkaline Phosphatase 83 Total Protein 7.4 Albumin 3.9 Urine Color Yellow Urine Appearance Clear Urine pH 5.5 Ur Specific [place] 1.023 Urine Protein 2+ H Urine Glucose (UA) 1+ H Urine Ketones Negative Urine Blood Negative Urine Nitrite Negative Urine Bilirubin Negative Urine Urobilinogen 0.2 Ur Leukocyte Esterase Negative Urine WBC (Auto) 1 Urine RBC (Auto) 2 Urine Casts (Auto) 3 U Epithel Cells (Auto) 1.4 Urine Bacteria (Auto) 17.9 07/26/19 16:41 RBC 4.77 MCV 87.9 MCHC 34.6 RDW 14.9 D MPV 8.5 Neutrophils % 71.5 D Lymphocytes % 17.2 D Monocytes % 9.9 Eosinophils % 0.7 Basophils % 0.7 Medical Decision Making - Medical Decision Making 07/26/19 19:00 Pt received on sign out from Dr. Luisana Garza. 07/26/19 19:27 D/w HAND II [employer] C[employer] Carleen Wells who accepts the patient for admission. Discharge - Discharge Information Problems reviewed: Yes Clinical Impression/Diagnosis: Altered mental status Condition: Stable - Admission Yes - Follow up/Referral - Patient Discharge Instructions - Post Discharge Activity
--- NOTE | 2019-07-26 20:57 | HP ---
Admitting History and Physical - Primary Care Physician PCP: Clement Bright - Admission Chief Complaint: frequent falls, change in mental status History of Present Illness: This is a 84 y/o man with a PMHx of CVA (left residual weakness), HTN, HLD, DM, Gastritis, Renal Calculi. Who presents to the ED with his s/p fall x 2 days ago. per the , the patient has had 4 falls within the past month. She also reports a change in his mental status. History Source: Family Member Limitations to Obtaining History: Clinical Condition - Past Medical History PROJECT LEAD: Yes: CVA Cardiovascular: Yes: HTN, Hyperlipdemia Endocrine: Yes: Diabetes Mellitus - Past Surgical History Past Surgical History: Yes: None - Smoking History Smoking history: Former smoker Have you smoked in the past 12 months: No Aproximately how many cigarettes per day: 0 If you are a former smoker, when did you quit?: 40 YRS AGO - Alcohol/Substance Use Hx Alcohol Use: No History of Substance Use: reports: None - Social History Usual Living Arrangement: Yes: With Spouse ADL: Family Assistance History of Recent Travel: No Home Medications - Allergies Allergies/Adverse Reactions: Allergies Allergy/AdvReac Type Severity Reaction Status Date / Time No Known Allergies Allergy Verified 03/01/17 08:23 - Home Medications Home Medications: Ambulatory Orders Amlodipine Besylate 10 mg PO DAILY 05/07/16 Brimonidine Tartrate/Timolol [Combigan 0.2%-0.5% Eye Drops] 1 drop OU BID Cholecalciferol (Vitamin D3) [Vitamin D3] 2,000 unit PO DAILY 05/07/16 Enalapril Maleate [Vasotec -] 10 mg PO DAILY 05/07/16 Metoprolol Succinate [Toprol XL -] 25 mg PO DAILY 05/07/16 Multivit-Min/FA/Lycopen/Lutein [Centrum Silver Tablet] 1 each PO DAILY 05/07/16 Simvastatin [Zocor -] 40 mg PO HS 05/07/16 metFORMIN HCL [Metformin HCl] 500 mg PO DAILY 05/07/16 Aspirin/Dipyridamole [Aggrenox -] 1 combo PO BID #0 05/09/16 [place]-3 Acid Ethyl Esters [Lovaza -] 1 mg PO BID 05/09/16 Bimatoprost [Lumigan] 1 drop OU HS 07/26/19 Family Medical History Family History: Unable to Obtain Review of Systems - Review of Systems Constitutional: reports: Weakness Eyes: reports: No Symptoms HENT: reports: No Symptoms Neck: reports: No Symptoms Cardiovascular: reports: No Symptoms Respiratory: reports: No Symptoms Gastrointestinal: reports: No Symptoms Genitourinary: reports: No Symptoms Breasts: reports: No Symptoms Reported Musculoskeletal: reports: Muscle Weakness Integumentary: reports: Bruising Neurological: reports: Confusion, Unsteady Gait Endocrine: reports: No Symptoms Hematology/Lymphatic: reports: No Symptoms Psychiatric: reports: No Symptoms Pain Intensity: 2 Physical Examination Vital Signs: Vital Signs Temperature 98.0 F 07/26/19 19:40 Pulse Rate 81 07/26/19 19:40 Respiratory Rate 17 07/26/19 19:40 Blood Pressure 139/70 07/26/19 19:40 O2 Sat by Pulse Oximetry (%) 97 07/26/19 19:40 Constitutional: Yes: Well Nourished, No Distress, Calm Eyes: Yes: Conjunctiva Clear, EOM Intact, PERRL HENT: Yes: WNL, Atraumatic, Normocephalic, Other (left orbit ecchymosis) Neck: Yes: WNL, Supple, Trachea Midline Cardiovascular: Yes: Regular Rate and Rhythm, S1, S2 Respiratory: Yes: WNL, Regular, CTA Bilaterally Gastrointestinal: Yes: WNL, Normal Bowel Sounds, Soft, Abdomen, Obese ...Rectal Exam: Yes: Deferred Renal/: Yes: WNL Breast(s): Yes: WNL Musculoskeletal: Yes: Back Pain Extremities: Yes: WNL Edema: No Peripheral Pulses WNL: Yes Integumentary: Yes: Bruising, Erythema Neurological: Yes: Alert, Confusion, Dysarthria, Pre-Existing Deficit ...Motor Strength: LUE (5/5), LLE (5/5), RUE (3/5), RLE (3/5) Psychiatric: Yes: Alert Labs: CBC, BMP 07/26/19 16:41 07/26/19 16:41 Imaging - Results X-ray: Report Reviewed, Image Reviewed Cat Scan: Report Reviewed, Image Reviewed EKG: Image Reviewed Problem List - Problems (1) Acute metabolic encephalopathy Code(s): G93.41 - METABOLIC ENCEPHALOPATHY (2) Frequent falls Code(s): R29.6 - REPEATED FALLS (3) Cerebrovascular accident Code(s): I63.9 - CEREBRAL INFARCTION, UNSPECIFIED (4) ALEM (acute kidney injury) Code(s): N17.9 - ACUTE KIDNEY FAILURE, UNSPECIFIED (5) Diabetes mellitus Code(s): E11.9 - TYPE 2 DIABETES MELLITUS WITHOUT COMPLICATIONS Qualifiers: Diabetes mellitus type: type 2 Diabetes mellitus fdc insulin use: without fdc use Diabetes mellitus complication status: without complication Qualified Code(s): E11.9 - Type 2 diabetes mellitus without complications (6) HTN (hypertension) Code(s): I10 - ESSENTIAL (PRIMARY) HYPERTENSION Qualifiers: Hypertension type: essential hypertension Qualified Code(s): I10 - Essential (primary) hypertension (7) Hypercholesterolemia Code(s): E78.00 - PURE HYPERCHOLESTEROLEMIA, UNSPECIFIED Assessment/Plan This is a 84 y/o man with a PMHx of CVA (left residual weakness), HTN, HLD, DM, Gastritis, Renal Calculi. Admitted to M/S for Acute Metabolic Encephalopathy, Frequent Falls, Unsteady Gait for further evaluation of their emergent condition. Plan: Admit Appreciate Neurology Consult Head CT- no ICH C-Spine CT- mod degenerative arthritis, neg fx Facial CT- neg fx EKG- NSR, LVH, cannot r/o Septal Infarct PT eval Neurochecks Fall Precautions Orthostatics Consider STR vs SNF Appreciate Nephrology consult Continue home meds, except Metformin 2/2 lactic acidosis Pain Management- Tylenol prn FEN PO fluids as tolerated Replete lytes prn Low Na, Diabetic Diet DVT ppx OOB SCDs Hold AC 2/2 frequent falls Dispo: Requires Inpatient Care Visit type - Emergency Visit Emergency Visit: Yes ED Registration Date: 07/26/19 Care time: The patient presented to the Emergency Department on the above date and was hospitalized for further evaluation of their emergent condition. - New Patient This patient is new to me today: Yes Date on this admission: 07/26/19 - Critical Care Critical Care patient: No
[2019-07-26 22:12] VITALS: BMI 28.0
--- NOTE | 2019-07-27 08:10 | PN ---
Progress Note, Physician History of Present Illness: 84 y/o man with a PMHx of CVA (left residual weakness), HTN, HLD, DM, Gastritis , Renal Calculi. Who presents to the ED with his s/p fall x 2 days ago. per the , the patient has had 4 falls within the past month. She also reports a change in his mental status. - Current Medication List Current Medications: Active Medications Amlodipine Besylate (Norvasc -) 10 mg PO DAILY [facility] Dipyridamole/Aspirin (Aggrenox -) 1 combo PO BID [facility] Enalapril Maleate (Vasotec -) 10 mg PO DAILY [facility] Metoprolol Succinate (Toprol Xl -) 25 mg PO DAILY [facility] Non-Formulary Medication (Cholecalciferol (Vitamin D3) [Vitamin D3]) 2,000 unit PO DAILY [facility] Non-Formulary Medication (Multivit-Min/Fa/Lycopen/Lutein [Centrum Silver Tablet] ) 1 each PO DAILY [facility] Non-Formulary Medication (Simvastatin) 40 mg PO HS [facility] Non-Formulary Medication (Bimatoprost [Lumigan]) 1 drop OP DAILY [facility] Non-Formulary Medication (Brimonidine Tartrate/Timolol [Combigan 0.2%-0.5% Eye Drops]) 5 ml OP DAILY [facility] Bioqa-0-[id number] Ethyl Esters (Lovaza -) 0.001 gm PO BID [facility] - Objective Vital Signs: Vital Signs Temperature 97.6 F 07/27/19 06:29 Pulse Rate 69 07/27/19 06:29 Respiratory Rate 20 07/27/19 06:29 Blood Pressure 122/83 07/27/19 06:29 O2 Sat by Pulse Oximetry (%) 98 07/26/19 22:18 Cardiovascular: Yes: S1, S2 Respiratory: Yes: Regular, CTA Bilaterally Gastrointestinal: Yes: Normal Bowel Sounds, Soft Neurological: Yes: Alert, Confusion Labs: CBC, BMP 07/26/19 16:41 07/26/19 16:41 INR, PTT INR 0.94 (0.83-1.09) 07/26/19 16:41 Problem List - Problems (1) Altered mental status Assessment/Plan: MAYBE VOLUME DEPLETION CT HEAD NAD NO FOCAL FINDINGS NEURO FOLLOW LABS PT Code(s): R41.82 - ALTERED MENTAL STATUS, UNSPECIFIED (2) Diabetes mellitus Assessment/Plan: BGM HBA1C Code(s): E11.9 - TYPE 2 DIABETES MELLITUS WITHOUT COMPLICATIONS Qualifiers: Diabetes mellitus type: type 2 Diabetes mellitus long-term insulin use: without 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
[2019-07-27 09:24] LABS: BASO % 0.7 % (0-2.0); EOS % 1.4 % (0-4.5); HEMATOCRIT 38.1 % (35.4-49); HEMOGLOBIN 13.5 GM/dL (11.7-16.9); LYMPH % 16.5 % (8-40); MCH 30.9 pg (25.7-33.7); MCHC 35.5 g/dl (32.0-35.9); MEAN CELL VOLUME 87.2 fl (80-96); MEAN PLT VOLUME 8.5 fl (7.5-11.1); MONO % 11.3 % (3.8-10.2); NEUT % 70.1 % (42.8-82.8); PLATELET COUNT 127 K/MM3 (134-434); RBC 4.37 M/mm3 (4.00-5.60); RDW 14.4 % (11.9-15.9); WHITE BLOOD COUNT 5.2 K/mm3 (4.0-10.0)
[2019-07-27] MEDS ORDERED: PATIENT'S OWN MEDICATION (NON-FORMULARY) (Brimonidine Tartrate/Timolol [Combigan 0.2%-0.5% OP SCH (10:00)
[2019-07-27] MEDS ORDERED: OMEGA-3 ACID ETHYL ESTERS (FATTY-ACIDS) 1 GM CAPSULE (FP) PO SCH (10:00)
[2019-07-27] MEDS ORDERED: ASPIRIN/DIPYRIDAMOLE 25 MG/200 MG CAPSULE PO SCH (10:00)
[2019-07-27 10:10] LABS: BLOOD UREA NITROGEN 18.6 mg/dL (7-18); CREATININE 1.2 mg/dL (0.55-1.3); MAGNESIUM 1.9 mg/dL (1.8-2.4); PHOSPHOROUS 3.1 mg/dL (2.5-4.9)
[2019-07-27] MEDS: metoPROLOL SUCCINATE 25 MG TAB.SR.24H (FP) PO SCH (10:18)
[2019-07-27] MEDS: ENALAPRIL MALEATE 10 MG TABLET (FP) PO SCH (10:18)
[2019-07-27] MEDS: MULTIVITAMINS THER W-MINERALS COMBO TABLET (FP) PO SCH (10:19)
[2019-07-27] MEDS: amLODIPine BESYLATE 10 MG TABLET (FP) PO SCH (10:19)
[2019-07-27] MEDS: CHOLECALCIFEROL (VIT D3) 1,000 UNIT (25 MCG) TABLET PO SCH (10:19)
[2019-07-27] MEDS ORDERED: POTASSIUM CHLORIDE TABS 10 MEQ TABLET.ER (FP) PO ONE (11:30)
--- NOTE | 2019-07-27 11:35 | EKG ---
Test Reason : Blood Pressure : / mmHG Vent. Rate : 069 BPM Atrial Rate : 069 BPM P-R Int : 168 ms QRS Dur : 092 ms QT Int : 434 ms P-R-T Axes : 028 -16 005 degrees QTc Int : 465 ms NORMAL SINUS RHYTHM MINIMAL VOLTAGE CRITERIA FOR LVH, MAY BE NORMAL VARIANT BORDERLINE ECG WHEN COMPARED WITH ECG OF 26-JUL-2019 15:14, MINIMAL CRITERIA FOR SEPTAL INFARCT ARE NO LONGER PRESENT Confirmed by Christian Sanchez MD ([id number]) on 07/27/2019 11:35:28 AM Referred By: LORRAINE SMITH DR Confirmed By:Christian Sanchez MD
--- NOTE | 2019-07-27 11:39 | EKG ---
Test Reason : Blood Pressure : / mmHG Vent. Rate : 070 BPM Atrial Rate : 070 BPM P-R Int : 158 ms QRS Dur : 086 ms QT Int : 394 ms P-R-T Axes : 039 -18 001 degrees QTc Int : 425 ms NORMAL SINUS RHYTHM MODERATE VOLTAGE CRITERIA FOR LVH, MAY BE NORMAL VARIANT CANNOT RULE OUT SEPTAL INFARCT , AGE UNDETERMINED ABNORMAL ECG WHEN COMPARED WITH ECG OF 01-MAR-2017 13:17, MINIMAL CRITERIA FOR SEPTAL INFARCT ARE NOW PRESENT Confirmed by Christian Sanchez MD ([id number]) on 07/27/2019 11:38:55 AM Referred By: Confirmed By:Christian Sanchez MD
[2019-07-27] MEDS ORDERED: TIMOLOL 0.5% OPHTHALMIC SOL 5 ML BOTTLE OU SCH (12:00)
[2019-07-27] MEDS ORDERED: BRIMONIDINE TARTRATE 0.2% OPHTHALMIC 5 ML BOTTLE OU SCH (12:00)
[2019-07-27] MEDS ORDERED: PT OWN MED DRAWER 7, Y5N ONE ×2 (13:00→20:32)
--- NOTE | 2019-07-27 13:26 | CONSULT ---
Consult Consult Specialty:: PM&R Dr Galeas for Dr Villalobos - History of Present Illness Chief Complaint: falls History of Present Illness: This is an 84 year old man with a medical history of CVA with L HP, HTN, HLD, gastritis, renal calculi, DMT2, who presented to the ED 07/26/2019 after 5 falls since 05/2019. He reports the falls were mechanical (moving too quickly, left his cane, tripped); reports that since the 1st one in 05/2019, he has been more unsteady and more confused. He was admitted for further work-up of acute metabolic encephalopathy, unsteady gait and falls. CT head 07/26/2019 showed no acute pathology, with moderately severe small vessel ischemia. CT facial bones was limited, without evidence of facial bone fractures or acute pathology. CT cervical spine 07/26/2019 showed moderately severe DJD. Renal function was elevated. Neurology consult is pending. He has not been seen by PT. Physiatry is being consulted for further recommendations. 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 Cardio/Vascular: Yes: HTN, Hyperlipdemia Endocrine: Yes: Diabetes Mellitus - Past Surgical History Past Surgical History: Yes: None - Alcohol/Substance Use Hx Alcohol Use: No - Smoking History Smoking history: Former smoker Have you smoked in the past 12 months: No Aproximately how many cigarettes per day: 0 If you are a former smoker, when did you quit?: 40 YRS AGO - Social History Usual Living Arrangement: With Spouse (in private house with 6 steps to enter and 13 inside) ADL: Independent (Independent in ADLs with [place]) Home Medications - Allergies Allergies/Adverse Reactions: Allergies Allergy/AdvReac Type Severity Reaction Status Date / Time No Known Allergies Allergy Verified 03/01/17 08:23 - Home Medications Home Medications: Ambulatory Orders Amlodipine Besylate 10 mg PO DAILY 05/07/16 Brimonidine Tartrate/Timolol [Combigan 0.2%-0.5% Eye Drops] 1 drop OU BID Cholecalciferol (Vitamin D3) [Vitamin D3] 2,000 unit PO DAILY 05/07/16 Enalapril Maleate [Vasotec -] 10 mg PO DAILY 05/07/16 Metoprolol Succinate [Toprol XL -] 25 mg PO DAILY 05/07/16 Multivit-Min/FA/Lycopen/Lutein [Centrum Silver Tablet] 1 each PO DAILY 05/07/16 Simvastatin [Zocor -] 40 mg PO HS 05/07/16 metFORMIN HCL [Metformin HCl] 500 mg PO DAILY 05/07/16 Aspirin/Dipyridamole [Aggrenox -] 1 combo PO BID #0 05/09/16 [place]-3 Acid Ethyl Esters [Lovaza -] 1 mg PO BID 05/09/16 Bimatoprost [Lumigan] 1 drop OU HS 07/26/19 Review of Systems Findings/Remarks: Denies fevers, chills, changes in vision/ hearing/ mood, CP, SOB, abdominal pain , nausea, vomiting, constipation, diarrhea, dysuria, or numbness/ tingling BUE/ BLE. Initially he denied pain, but noted non radiating LBP since 1st fall. He denies change in chronic mild L weakness. Physical Exam Vital Signs: Vital Signs Temperature 97.6 F 07/27/19 06:29 Pulse Rate 69 07/27/19 06:29 Respiratory Rate 20 07/27/19 06:29 Blood Pressure 122/83 07/27/19 06:29 O2 Sat by Pulse Oximetry (%) 98 07/26/19 22:18 Musculoskeletal: Yes: Other (General: calm elderly M sitting in bed NAD, slightly confused with L periorbital hematoma (healing); B shoulder flexion to 120 degrees without pain, 5-/5 RUE, 4/5 LUE; 4+ 5 HF then 5-/5 RLE, 4 /5 L HF then 4+/5 LLE; Pinprick Intact BUE/ BLE; no BLE pitting edema, no B calf tenderness) Labs: CBC, BMP 07/27/19 08:15 07/27/19 08:15 Imaging - Results Cat Scan: Report Reviewed (as per HPI) Assessment/Plan Impression: 1) Deficits mobility/ ADLs 2) Deconditioning 3) Gait abnormality with frequent falls 4) AMS 5) Elevated renal function, improving 6) Cervical DJD 7) hx CVA with L HP 8) hx HTN, HLD 9) hx gastritis 10) hx renal calculi 11) DMT2 12) Overweight 13) Up to date flu shot/ pneumovax Recommendations: 1) PT for stretching strengthening ROM balance and functional mobility 2) Falls, safety precautions 3) Cardiac, diabetic precautions 4) Heat/ ice low back prn 5) DVT ppx: off AC 2/2 recurrent falls 6) Denies constipation on current bowel regimen 7) Skin protection: float heels, frequent turning 8) Monitor BMP given renal function 9) Nutrition consult for overweight 10) Continue plan per primary team 11) Discharge planning: to be determined Thank you for this referral.
--- NOTE | 2019-07-27 15:19 | PN ---
Progress Note (short form) - Note Progress Note: Renal consult for CKD. This is a 84 year old gentleman with history of CVA, hypertension, hyperlipidemia, DM2, gastritis and renal calculi who was admitted s/p falls and noted to have Cr of 1.4. Pt seen and examined at the bedside. Denies history of CKD. Does have hx of stones. No flank pain, hematuria or dysuria noted. No chest pain or shortness of breath. No confusion, lethargy or weakness. Denies any prodrome prior to fall. Is on ACEi. PMhx: as above Allergies: NKDA Famly Hx: NC Social hx: No T/A/D ROS: as per HPI, all other pertinent ros negative Home Medications Medication Instructions Recorded Amlodipine Besylate 10 mg PO DAILY 05/07/16 Brimonidine Tartrate/Timolol 1 drop OU BID 05/07/16 [Combigan 0.2%-0.5% Eye Drops] Cholecalciferol (Vitamin D3) 2,000 unit PO DAILY 05/07/16 [Vitamin D3] Enalapril Maleate [Vasotec -] 10 mg PO DAILY 05/07/16 Metoprolol Succinate [Toprol XL -] 25 mg PO DAILY 05/07/16 Multivit-Min/FA/Lycopen/Lutein 1 each PO DAILY 05/07/16 [Centrum Silver Tablet] Simvastatin [Zocor -] 40 mg PO HS 05/07/16 metFORMIN HCL [Metformin HCl] 500 mg PO DAILY 05/07/16 Aspirin/Dipyridamole [Aggrenox -] 1 combo PO BID #0 05/09/16 [place]-3 Acid Ethyl Esters [Lovaza 1 mg PO BID 05/09/16 -] Bimatoprost [Lumigan] 1 drop OU HS 07/26/19 Vital Signs Temperature 98.0 F 07/27/19 09:00 Pulse Rate 79 07/27/19 09:00 Respiratory Rate 20 07/27/19 09:00 Blood Pressure 115/82 07/27/19 09:00 O2 Sat by Pulse Oximetry (%) 95 07/27/19 09:00 Intake & Output 07/24/19 07/25/19 07/26/19 07/27/19 23:59 23:59 23:59 23:59 Intake Total 200 Output Total 100 Balance 200 -100 Weight 81.193 kg NAD awake and alert neck supple + orbial hematoma left eye RRR CTA soft NT/ND no LE edema, clubbing or cyanosis. CBC, BMP 07/27/19 08:15 07/27/19 08:15 Current Medications Amlodipine Besylate (Norvasc -) 10 mg PO DAILY [facility] Last Admin: 07/27/19 10:19 Dose: 10 mg Atorvastatin Calcium (Lipitor -) 20 mg PO HS [facility] Brimonidine Tartrate (Alphagan 0.2% -) 1 drop OU DAILY [facility] Last Admin: 07/27/19 13:07 Dose: 1 drop Cholecalciferol (Vitamin D3 -) 2,000 unit PO DAILY [facility] Last Admin: 07/27/19 10:19 Dose: 2,000 unit Dipyridamole/Aspirin (Aggrenox -) 1 combo PO BID [facility] Enalapril Maleate (Vasotec -) 10 mg PO DAILY [facility] Last Admin: 07/27/19 10:18 Dose: 10 mg Latanoprost (Xalatan 0.005% Eye Drops -) 1 drop OU HS [facility] Metoprolol Succinate (Toprol Xl -) 25 mg PO DAILY [facility] Last Admin: 07/27/19 10:18 Dose: 25 mg Multivitamins/Minerals (Theragran-M) 1 each PO DAILY [facility] Last Admin: 07/27/19 10:19 Dose: 1 each Timolol Maleate (Timoptic 0.5%) 1 drop OU DAILY [facility] Last Admin: 07/27/19 13:07 Dose: 1 drop 84 year old gentleman with history of CVA, hypertension, hyperlipidemia, DM2, gastritis and renal calculi who was admitted s/p falls and noted to have Cr of 1.4. 1. ALEM vs. CKD 2. Falls 3. Hypertension 4. CVA 5. Hyperlpidemia 6. Hx of Renal calculi 7. Hypokalemia Cr improved from admission. No overt electrolyte or acid/base disturbance noted. Check Renal US, UPCR. Check orthostatics r/o vasovagal syncope. . On ACEi and beta blokcer. Can consider down titration of BP meds given falls and advanced age Supplement K, check Mg levels. Thank you Rubén Atkinson DO
--- NOTE | 2019-07-27 18:03 | PDOC ---
Documentation entered by Bran Shin SCRIBE, acting as scribe for Bert Begum MD. Bert Begum MD: This documentation has been prepared by the Kip green Daniel, SCRIBE, under my direction and personally reviewed by me in its entirety. I confirm that the documentation accurately reflects all work, treatment, procedures, and medical decision making performed by me. Attending Attestation - Resident Resident Name: Salo Cooley - ED Attending Attestation I have performed the following: I have examined & evaluated the patient, The case was reviewed & discussed with the resident, I agree w/resident's findings & plan, Exceptions are as noted - HPI HPI: 07/26/19 16:31 The patient is an 84 year old male with a past medical history of diabetes, HTN , HLD, and CVA (2017 with residual left arm weakness and left facial numbness) sent in today by his PCP for evaluation of altered mental status and worsening gait s/p multiple falls. The patients and daughter were at bedside to assist with history. states that the patient has had 4 falls in the past 2 months with the first being in 06/09 and the last was Thursday. Patient states that when he fell Thursday, he landed on his left eye without loss of consciousness or change in vision. The states that in the past 2 months the patient has been getting progressively more confused and has had a worsening shuffling gait. Pt was seen by Dr. Bright today who sent the pt in for admission for AMS w/u. Patient denies headache, lightheadedness, new focal weakness/numbness, stiff neck. Denies fever, chills. Denies chest pain, shortness of breath. Denies nausea, vomiting, diarrhea, abdominal pain. Allergies: NKA PCP: Clement Bright - Physicial Exam PE: 07/26/19 16:32 Agree with resident exam +periorbital ecchymosis No midline spinal ttp throughout No abd ttp No ttp or deformities to extremities - Medical Decision Making 84yo M with MMP including CVA presents to the ED for admission after multiple falls, confusion, and new shuffling gait. Labs with mild ALEM, but not worse than previous CTH with no acute change Pt admitted for further w/u
--- NOTE | 2019-07-27 18:06 | CONSULT ---
Consult - text type - Consultation Consultation Note: NEUROLOGY CONSULTATION is greatly appreciated: Events reviewed, Patient examined. 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 Maintained on: Amlodipine; Combigan; Vitamin D3; Enalapril; Metoprolol; Simvastatin; metFORMIN; Aggrenox; Lovaza; and Lumigan. Now admitted after a "few months of increasing confusion, deterioration of gait and multiple falls. 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 CT of C-Spine: Diffuse spondylosis without traumatic changes. Facial CT without fractures. C87=428 pg%; TSH=1.67; RPR - SUNNY: Left orbital ecchymosis. No Dia's sign. No bruit. NEURO: Awake, alert, coop. Ox Jul. No year. Not [facility]. Recalls 1 of 3. + Glabella. Dysarthric speech CN: Dense left homonomous hemianopsia. Mild left facial. Gag OK, Decreased Tongue ERIKA's Motor: Mild left hemipareis with left drift, decreased ERIKA's (L>R). Decreased LE reflexes. Left Babinski. +Cogwheeling R>L Coord: No FTN Dystaxia Sensory: Difficult to test but Romberg + Gait: Shuffling, lists to left. IMP: 1. Moderately severe, B/L cerebral dysfunction (OMS, Chronic) suggesting Alzheimer's disease (AD). 2. Right cerebral accentuation c/w CVA. It is quite possible that Pt had a NEW left cerebral event with possibly increased weakness and ? New hemianopsia? 3. Some extrapyramidal features may be contributing to shuffling gait and falls. SUGGEST: MRI of brain (C-) Carotid duplex dopplers PT for gait with walker. Donepezil 5 mg q AM Social seervices for short term rehab Neuro f/u for consideration of L-Dopa Rx Continue Aggrenox Thank you very much, Abraham Back MD
[2019-07-27] MEDS: TIMOLOL 0.5% OPHTHALMIC SOL 5 ML BOTTLE OU SCH (21:42)
[2019-07-27] MEDS: LATANOPROST 0.005% OPHTH SOLN 2.5ML BOTTLE OU SCH (21:42)
[2019-07-27] MEDS: ATORVASTATIN CA 20 MG TABLET (FP) PO SCH (21:42)
[2019-07-27] MEDS: BRIMONIDINE TARTRATE 0.2% OPHTHALMIC 5 ML BOTTLE OU SCH (21:42)
[2019-07-28 07:50] LABS: BASO % 0.6 % (0-2.0); HEMATOCRIT 36.2 % (35.4-49); HEMOGLOBIN 12.8 GM/dL (11.7-16.9); LYMPH % 22.9 % (8-40); MCH 30.7 pg (25.7-33.7); MCHC 35.4 g/dl (32.0-35.9); MEAN CELL VOLUME 86.6 fl (80-96); MEAN PLT VOLUME 8.5 fl (7.5-11.1); MONO % 11.1 % (3.8-10.2); NEUT % 63.4 % (42.8-82.8); PLATELET COUNT 130 K/MM3 (134-434); RBC 4.18 M/mm3 (4.00-5.60); RDW 14.6 % (11.9-15.9); WHITE BLOOD COUNT 4.7 K/mm3 (4.0-10.0)
--- NOTE | 2019-07-28 08:26 | PN ---
Progress Note, Physician - Current Medication List Current Medications: Active Medications Amlodipine Besylate (Norvasc -) 10 mg PO DAILY [facility] Last Admin: 07/27/19 10:19 Dose: 10 mg Atorvastatin Calcium (Lipitor -) 20 mg PO HS [facility] Last Admin: 07/27/19 21:42 Dose: 20 mg Brimonidine Tartrate (Alphagan 0.2% -) 1 drop OU BID [facility] Last Admin: 07/27/19 21:42 Dose: 1 drop Cholecalciferol (Vitamin D3 -) 2,000 unit PO DAILY [facility] Last Admin: 07/27/19 10:19 Dose: 2,000 unit Dipyridamole/Aspirin (Aggrenox -) 1 combo PO BID [facility] Enalapril Maleate (Vasotec -) 10 mg PO DAILY [facility] Last Admin: 07/27/19 10:18 Dose: 10 mg Latanoprost (Xalatan 0.005% Eye Drops -) 1 drop OU [facility] Last Admin: 07/27/19 21:42 Dose: 1 drop Metoprolol Succinate (Toprol Xl -) 25 mg PO DAILY [facility] Last Admin: 07/27/19 10:18 Dose: 25 mg Multivitamins/Minerals (Theragran-M) 1 each PO DAILY [facility] Last Admin: 07/27/19 10:19 Dose: 1 each Timolol Maleate (Timoptic 0.5%) 1 drop OU BID [facility] Last Admin: 07/27/19 21:42 Dose: 1 drop - Objective Vital Signs: Vital Signs Temperature 98.0 F 07/27/19 22:00 Pulse Rate 76 07/27/19 22:00 Respiratory Rate 20 07/27/19 22:00 Blood Pressure 124/68 07/27/19 22:00 O2 Sat by Pulse Oximetry (%) 95 07/27/19 09:00 Cardiovascular: Yes: Regular Rate and Rhythm Respiratory: Yes: Regular, CTA Bilaterally Gastrointestinal: Yes: Normal Bowel Sounds, Soft Neurological: Yes: Alert, Weakness Labs: CBC, BMP 07/28/19 06:48 07/27/19 08:15 INR, PTT INR 0.94 (0.83-1.09) 07/26/19 16:41 Problem List - Problems (1) Altered mental status Assessment/Plan: MAYBE VOLUME DEPLETION CT HEAD NAD NO FOCAL FINDINGS NEURO await MRI FOLLOW LABS PT Code(s): R41.82 - ALTERED MENTAL STATUS, UNSPECIFIED (2) Diabetes mellitus Assessment/Plan: BGM HBA1C Code(s): E11.9 - TYPE 2 DIABETES MELLITUS WITHOUT COMPLICATIONS Qualifiers: Diabetes mellitus type: type 2 Diabetes mellitus assisted insulin use: without assisted use Diabetes mellitus complication status: without complication Qualified Code(s): E11.9 - Type 2 diabetes mellitus without complications (3) HTN (hypertension) Assessment/Plan: MONITOR ON CURRENT MEDS Code(s): I10 - ESSENTIAL (PRIMARY) HYPERTENSION Qualifiers: Hypertension type: essential hypertension Qualified Code(s): I10 - Essential (primary) hypertension (4) Frequent falls Assessment/Plan: C-SPINE WITH DEG CHANGES PT NEURO--MRI--SNF Code(s): R29.6 - REPEATED FALLS
[2019-07-28] MEDS ORDERED: PT OWN MED DRAWER 7, Y5N ONE ×2 (10:17→22:12)
[2019-07-28] MEDS: ENALAPRIL MALEATE 10 MG TABLET (FP) PO SCH (10:22)
[2019-07-28] MEDS: CHOLECALCIFEROL (VIT D3) 1,000 UNIT (25 MCG) TABLET PO SCH (10:22)
[2019-07-28] MEDS: MULTIVITAMINS THER W-MINERALS COMBO TABLET (FP) PO SCH (10:22)
[2019-07-28] MEDS: metoPROLOL SUCCINATE 25 MG TAB.SR.24H (FP) PO SCH (10:22)
[2019-07-28] MEDS: amLODIPine BESYLATE 10 MG TABLET (FP) PO SCH (10:22)
[2019-07-28] MEDS: ASPIRIN/DIPYRIDAMOLE 25 MG/200 MG CAPSULE PO SCH ×2 (10:23→22:13)
[2019-07-28] MEDS: TIMOLOL 0.5% OPHTHALMIC SOL 5 ML BOTTLE OU SCH ×2 (10:25→21:30)
[2019-07-28] MEDS: BRIMONIDINE TARTRATE 0.2% OPHTHALMIC 5 ML BOTTLE OU SCH ×2 (10:26→21:29)
[2019-07-28 14:10] LABS: BLOOD UREA NITROGEN 25.3 mg/dL (7-18); CALCIUM 9.9 mg/dL (8.5-10.1); CREATININE 1.4 mg/dL (0.55-1.3); MAGNESIUM 2.1 mg/dL (1.8-2.4); POTASSIUM 3.6 mmol/L (3.5-5.1)
--- NOTE | 2019-07-28 15:04 | PN ---
Progress Note (short form) - Note Progress Note: Renal follow up for CKD. Seen and examined at the bedside no acute complaints no sob, cp, fever, chlls tolerating diet making urine Vital Signs Temperature 98.0 F 07/27/19 22:00 Pulse Rate 76 07/27/19 22:00 Respiratory Rate 20 07/27/19 22:00 Blood Pressure 124/68 07/27/19 22:00 O2 Sat by Pulse Oximetry (%) 95 07/27/19 09:00 Intake & Output 07/25/19 07/26/19 07/27/19 07/28/19 23:59 23:59 23:59 23:59 Intake Total 200 300 100 Output Total 100 Balance 200 200 100 Weight 81.193 kg NAD + orbial hematoma left eye RRR CTA soft NT/ND no LE edema CBC, BMP 07/28/19 06:48 07/28/19 13:04 Current Medications Amlodipine Besylate (Norvasc -) 10 mg PO DAILY [facility] Last Admin: 07/28/19 10:22 Dose: 10 mg Atorvastatin Calcium (Lipitor -) 20 mg PO HS [facility] Last Admin: 07/27/19 21:42 Dose: 20 mg Brimonidine Tartrate (Alphagan 0.2% -) 1 drop OU BID [facility] Last Admin: 07/28/19 10:26 Dose: 1 drop Cholecalciferol (Vitamin D3 -) 2,000 unit PO DAILY [facility] Last Admin: 07/28/19 10:22 Dose: 2,000 unit Dipyridamole/Aspirin (Aggrenox -) 1 combo PO BID [facility] Last Admin: 07/28/19 10:23 Dose: 1 combo Enalapril Maleate (Vasotec -) 10 mg PO DAILY [facility] Last Admin: 07/28/19 10:22 Dose: 10 mg Latanoprost (Xalatan 0.005% Eye Drops -) 1 drop OU HS [facility] Last Admin: 07/27/19 21:42 Dose: 1 drop Metoprolol Succinate (Toprol Xl -) 25 mg PO DAILY [facility] Last Admin: 07/28/19 10:22 Dose: 25 mg Multivitamins/Minerals (Theragran-M) 1 each PO DAILY [facility] Last Admin: 07/28/19 10:22 Dose: 1 each Timolol Maleate (Timoptic 0.5%) 1 drop OU BID [facility] Last Admin: 07/28/19 10:25 Dose: 1 drop 84 year old gentleman with history of CVA, hypertension, hyperlipidemia, DM2, gastritis and renal calculi who was admitted s/p falls and noted to have Cr of 1.4. 1. ALEM vs. CKD 2. Falls 3. Hypertension 4. CVA 5. Hyperlpidemia 6. Hx of Renal calculi 7. Hypokalemia Renal function stable, no overt electrolyte or acid/base disturbances. Renal US showed bilateral simple cysts but no obstruction UPCR was 0.5 Orthostatic negative today BP in good range today, continue present meds Will follow up as needed Thank you Rubén Atkinson DO
[2019-07-28] MEDS: ATORVASTATIN CA 20 MG TABLET (FP) PO SCH (21:29)
[2019-07-28] MEDS: LATANOPROST 0.005% OPHTH SOLN 2.5ML BOTTLE OU SCH (21:33)
[2019-07-29 08:32] LABS: BLOOD UREA NITROGEN 24.2 mg/dL (7-18); CREATININE 1.3 mg/dL (0.55-1.3); MAGNESIUM 1.9 mg/dL (1.8-2.4); PHOSPHOROUS 3.1 mg/dL (2.5-4.9); POTASSIUM 3.2 mmol/L (3.5-5.1)
[2019-07-29] MEDS ORDERED: POTASSIUM CHLORIDE TABS 20 MEQ TABLET.ER (FP) PO ONE (09:10)
--- NOTE | 2019-07-29 09:15 | DS ---
Physical Examination Vital Signs: Vital Signs Temperature 98.1 F 07/29/19 07:47 Pulse Rate 66 07/29/19 07:47 Respiratory Rate 20 07/29/19 07:47 Blood Pressure 122/74 07/29/19 07:47 O2 Sat by Pulse Oximetry (%) 95 07/28/19 09:00 Cardiovascular: Yes: Regular Rate and Rhythm Respiratory: Yes: Regular, CTA Bilaterally Gastrointestinal: Yes: Normal Bowel Sounds, Soft Neurological: Yes: Alert Labs: CBC, BMP 07/28/19 06:48 07/29/19 07:05 Discharge Summary Problems reviewed: Yes Reason For Visit: AMS Current Active Problems ALEM (acute kidney injury) (Acute) Acute metabolic encephalopathy (Acute) Altered mental status (Acute) Frequent falls (Acute) Hospital Course: - Problems (1) Altered mental status Assessment/Plan: MAYBE VOLUME DEPLETION CT HEAD NAD NO FOCAL FINDINGS NEURO await MRI FOLLOW LABS PT Code(s): R41.82 - ALTERED MENTAL STATUS, UNSPECIFIED (2) Diabetes mellitus Assessment/Plan: BGM HBA1C Code(s): E11.9 - TYPE 2 DIABETES MELLITUS WITHOUT COMPLICATIONS Qualifiers: Diabetes mellitus type: type 2 Diabetes mellitus nursing home insulin use: without nursing home use Diabetes mellitus complication status: without complication Qualified Code(s): E11.9 - Type 2 diabetes mellitus without complications (3) HTN (hypertension) Assessment/Plan: MONITOR ON CURRENT MEDS Code(s): I10 - ESSENTIAL (PRIMARY) HYPERTENSION Qualifiers: Hypertension type: essential hypertension Qualified Code(s): I10 - Essential (primary) hypertension (4) Frequent falls Assessment/Plan: C-SPINE WITH DEG CHANGES PT NEURO--MRI-NO CVA-SNF Code(s): R29.6 - REPEATED FALLS Condition: Stable - Instructions Referrals: Clement Bright MD [Primary Care Provider] - Disposition: [facility] FACILITY - Home Medications Comprehensive Discharge Medication List: Ambulatory Orders Amlodipine Besylate 10 mg PO DAILY 05/07/16 Brimonidine Tartrate/Timolol [Combigan 0.2%-0.5% Eye Drops] 1 drop OU BID Cholecalciferol (Vitamin D3) [Vitamin D3] 2,000 unit PO DAILY 05/07/16 Enalapril Maleate [Vasotec -] 10 mg PO DAILY 05/07/16 Metoprolol Succinate [Toprol XL -] 25 mg PO DAILY 05/07/16 Multivit-Min/FA/Lycopen/Lutein [Centrum Silver Tablet] 1 each PO DAILY 05/07/16 Simvastatin [Zocor -] 40 mg PO HS 05/07/16 Aspirin/Dipyridamole [Aggrenox -] 1 combo PO BID #0 05/09/16 [place]-3 Acid Ethyl Esters [Lovaza -] 1 mg PO BID 05/09/16 Bimatoprost [Lumigan] 1 drop OU HS 07/26/19 Brimonidine Tartrate [Alphagan 0.2% -] 1 drop OU BID drops 07/29/19 Potassium Chloride [K-Dur -] 10 meq PO DAILY tablet.er 07/29/19
[2019-07-29] MEDS ORDERED: POTASSIUM CHLORIDE TABS 10 MEQ TABLET.ER (FP) PO SCH (10:00)
[2019-07-29] MEDS ORDERED: PT OWN MED DRAWER 7, Y5N ONE (10:05)
[2019-07-29] MEDS: metoPROLOL SUCCINATE 25 MG TAB.SR.24H (FP) PO SCH (10:11)
[2019-07-29] MEDS: MULTIVITAMINS THER W-MINERALS COMBO TABLET (FP) PO SCH (10:11)
[2019-07-29] MEDS: CHOLECALCIFEROL (VIT D3) 1,000 UNIT (25 MCG) TABLET PO SCH (10:11)
[2019-07-29] MEDS: ENALAPRIL MALEATE 10 MG TABLET (FP) PO SCH (10:12)
[2019-07-29] MEDS: amLODIPine BESYLATE 10 MG TABLET (FP) PO SCH (10:12)
[2019-07-29] MEDS: ASPIRIN/DIPYRIDAMOLE 25 MG/200 MG CAPSULE PO SCH (10:12)
[2019-07-29] MEDS: BRIMONIDINE TARTRATE 0.2% OPHTHALMIC 5 ML BOTTLE OU SCH (10:15)
[2019-07-29] MEDS: TIMOLOL 0.5% OPHTHALMIC SOL 5 ML BOTTLE OU SCH (10:16)
--- NOTE | 2019-07-29 14:17 | CON.PULM ---
Consult Consult Specialty:: PULMONARY Referred by:: RENEE Reason for Consultation:: CHANGE MS - History of Present Illness Chief Complaint: FALL/WEAKNESS History of Present Illness: This is a 84 y/o man with a PMHx of CVA (left residual weakness), HTN, HLD, DM, Gastritis, Renal Calculi. Who presents to the ED from my office with his s/p fall x 2 days ago. per the , the patient has had 4 falls within the past month. She also reports a change in his mental status, denies fever. - History Source History Provided By: Patient, Family Member, Medical Record Limitations to Obtaining History: Clinical Condition - Past Medical History [employer]: Yes: CVA Cardio/Vascular: Yes: HTN, Hyperlipdemia Endocrine: Yes: Diabetes Mellitus - Past Surgical History Past Surgical History: Yes: None - Alcohol/Substance Use Hx Alcohol Use: No History of Substance Use: reports: None - Smoking History Smoking history: Former smoker Have you smoked in the past 12 months: No Aproximately how many cigarettes per day: 0 If you are a former smoker, when did you quit?: 40 YRS AGO - Social History Usual Living Arrangement: With Spouse (in private house with 6 steps to enter and 13 inside) ADL: Family Assistance History of Recent Travel: No Home Medications - Allergies Allergies/Adverse Reactions: Allergies Allergy/AdvReac Type Severity Reaction Status Date / Time No Known Allergies Allergy Verified 03/01/17 08:23 - Home Medications Home Medications: Ambulatory Orders Amlodipine Besylate 10 mg PO DAILY 05/07/16 Brimonidine Tartrate/Timolol [Combigan 0.2%-0.5% Eye Drops] 1 drop OU BID Cholecalciferol (Vitamin D3) [Vitamin D3] 2,000 unit PO DAILY 05/07/16 Enalapril Maleate [Vasotec -] 10 mg PO DAILY 05/07/16 Metoprolol Succinate [Toprol XL -] 25 mg PO DAILY 05/07/16 Multivit-Min/FA/Lycopen/Lutein [Centrum Silver Tablet] 1 each PO DAILY 05/07/16 Simvastatin [Zocor -] 40 mg PO HS 05/07/16 Aspirin/Dipyridamole [Aggrenox -] 1 combo PO BID #0 05/09/16 [place] [employer]-3 Acid Ethyl Esters [Lovaza -] 1 mg PO BID 05/09/16 Bimatoprost [Lumigan] 1 drop OU HS 07/26/19 Brimonidine Tartrate [Alphagan 0.2% -] 1 drop OU BID drops 07/29/19 Potassium Chloride [K-Dur -] 10 meq PO DAILY tablet.er 07/29/19 Review of Systems Unable to obtain ROS, reason: unable Physical Exam Vital Sings: Vital Signs Temperature 98.1 F 07/29/19 07:47 Pulse Rate 66 07/29/19 07:47 Respiratory Rate 07/29/19 07:47 Blood Pressure 122/74 07/29/19 07:47 O2 Sat by Pulse Oximetry (%) 95 07/28/19 09:00 Constitutional: Yes: Calm Eyes: Yes: EOM Intact HENT: Yes: Normocephalic Neck: Yes: Trachea Midline Cardiovascular: Yes: Regular Rate and Rhythm Respiratory: Yes: CTA Bilaterally Gastrointestinal: Yes: Normal Bowel Sounds, Soft Renal/: Yes: WNL Breast(s): Yes: WNL Musculoskeletal: Yes: WNL Extremities: Yes: WNL Edema: No Neurological: Yes: Pre-Existing Deficit, Unsteady Gait, Weakness ...Motor Strength: LUE, LLE (weakness from prior stroke) Labs: CBC, BMP 07/28/19 06:48 07/29/19 07:05 rest reviewed Imaging - Results Chest X-ray: Report Reviewed, Image Reviewed Cat Scan: Report Reviewed MRI: Report Reviewed Problem List - Problems (1) Altered mental status Code(s): R41.82 - ALTERED MENTAL STATUS, UNSPECIFIED (2) Frequent falls Code(s): R29.6 - REPEATED FALLS (3) Cerebrovascular accident Code(s): I63.9 - CEREBRAL INFARCTION, UNSPECIFIED (4) Diabetes mellitus Code(s): E11.9 - TYPE 2 DIABETES MELLITUS WITHOUT COMPLICATIONS Qualifiers: Diabetes mellitus type: type 2 Diabetes mellitus watermaster insulin use: without snf use Diabetes mellitus complication status: without complication Qualified Code(s): E11.9 - Type 2 diabetes mellitus without complications (5) HTN (hypertension) Code(s): I10 - ESSENTIAL (PRIMARY) HYPERTENSION Qualifiers: Hypertension type: essential hypertension Qualified Code(s): I10 - Essential (primary) hypertension (6) Hypercholesterolemia Code(s): E78.00 - PURE HYPERCHOLESTEROLEMIA, UNSPECIFIED Assessment/Plan HAVE SPOKEN WITH DR STINSON/NO ACUTE STROKE NOTED MRI RESULTS REVIEWED WITH HIM WILLREMAIN ON AGGRENOX AND SEEK PT AT DISCHARGE NO FURTHER W/U IN PATIENT WILL EVENTUALLY FOLLOW IN OFFICE Arlene ACOSTA MD
[2019-07-29 17:16] VITALS: BP 106/70; PULSE 70; TEMP 98.6
== END 2019-07-29 20:58 | DRG 640 ==
LOC: JER 14:22 → JERBED 19:22 → J8W 21:42
PROVIDERS: ADMIT Internal Medicine; ATTEND Family Medicine
DX: E86.9 Volume depletion, unspecified (principal); G93.41 Metabolic encephalopathy; I69.354 Hemiplegia and hemiparesis following cerebral infarction affecting left non-dominant side; N17.9 Acute kidney failure, unspecified; E78.5 Hyperlipidemia, unspecified; I10 Essential (primary) hypertension; E11.9 Type 2 diabetes mellitus without complications; Z79.84 Long term (current) use of oral hypoglycemic drugs; K29.60 Other gastritis without bleeding; R29.6 Repeated falls; R26.81 Unsteadiness on feet; E66.3 Overweight; S05.12XA Contusion of eyeball and orbital tissues, left eye, initial encounter; Z68.28 Body mass index [BMI] 28.0-28.9, adult; W01.0XXA Fall on same level from slipping, tripping and stumbling without subsequent striking against object, initial encounter; Y93.89 Activity, other specified; Y92.091 Bathroom in other non-institutional residence as the place of occurrence of the external cause; Y99.8 Other external cause status; E87.6 Hypokalemia; G30.9 Alzheimer's disease, unspecified
CPT/HCPCS: 36415; 70450-TC; 70486-TC; 70551-TC; 71045-TC-FY; 72125-TC; 76775-TC; 80048; 80053; 81003; 82570; 82607; 82962; 83735; 84100; 84156; 84443; 85025; 85027; 85610; 85730; 86593; 87086; 93005; 93010; 93880-TC; 97116-GP; 97161-GP; 99285-25